=== PATIENT | female | born 1945 | race Caucasian/White ===

== ENCOUNTER 2018-02-24 14:58 | Outpatient (CLI) | payer MEDICARE, OTHER ==
[~2018-02-24 14:58] MED LIST: BUDE10.2 INH; CAND32TA2 PO; CLON1PAT13 TD; DULO60CA45 PO; ESOM40CA PO; FOLI1TAB16 PO; FURO-145 PO; LEUC5TAB PO; LEVO500T75 PO; NIFE60TA2 PO; OXYC80TA40 PO; PREG225C PO; RIVA10TA PO; SULF500T8 PO; TOCI80VI IV; ZOLP10TA6 PO
== END 2018-02-24 23:59 | disposition home or self-care (01) ==
LOC: WOU 14:58
PROVIDERS: ATTEND Podiatrist Foot & Ankle Surgery
DX: M14.672 Charcot's joint, left ankle and foot (principal); M14.671 Charcot's joint, right ankle and foot; M05.9 Rheumatoid arthritis with rheumatoid factor, unspecified; G60.9 Hereditary and idiopathic neuropathy, unspecified; G90.521 Complex regional pain syndrome I of right lower limb; Z96.653 Presence of artificial knee joint, bilateral; I10 Essential (primary) hypertension
CPT/HCPCS: G0463; Z7610